=== PATIENT | female | born 1990 | race Caucasian/White ===

== ENCOUNTER 2021-02-03 19:48 | Emergency (ER) | payer OTHER ==
--- NOTE | 2021-02-03 20:15 | NUR ---
Per chief clerk, pt LWBS.
== END 2021-02-03 20:15 | disposition left against medical advice (07) ==
LOC: SED 19:58
DX: M79.5 Residual foreign body in soft tissue (principal); Z53.21 Procedure and treatment not carried out due to patient leaving prior to being seen by health care provider